=== PATIENT | female | born 2000 | race Caucasian/White ===

== ENCOUNTER 2025-04-24 16:56 | Emergency (ER) | payer OTHER ==
[~2025-04-24] VITALS: Ht 154.9 cm; Wt 48.1 kg
[2025-04-24 18:47] LABS: APPEARANCE,URINE CLEAR (CLEAR); BLOOD, URINE Negative Ery/uL (NEGATIVE); LEUKOCYTE ESTERASE ,URINE Negative (NEGATIVE); NITRITE, URINE NEGATIVE (NEGATIVE); UGLUCOSE Negative (NEGATIVE)
[2025-04-24 18:49] LABS: PREGNANCY TEST URINE QUAL NEGATIVE (NEGATIVE)
[2025-04-24 19:30] VITALS: BP 110/70; TEMP 98; O2SAT 100
== END 2025-04-24 19:30 | disposition home or self-care (01) ==
LOC: ER 17:01
DX: R10.22 Pelvic and perineal pain left side (principal); E03.9 Hypothyroidism, unspecified; Z88.8 Allergy status to other drugs, medicaments and biological substances; Z88.2 Allergy status to sulfonamides; Z88.1 Allergy status to other antibiotic agents; Z88.0 Allergy status to penicillin
CPT/HCPCS: 76856-TC; 84703-TC; 87210-TC; J7030